=== PATIENT | female | born 1940 | race Caucasian/White ===

== ENCOUNTER 2016-09-22 09:27 | Outpatient (CLI) | payer MEDICARE ==
[2016-09-22 10:33] LABS: eGFR (African) > 60; eGFR (Non-African) > 60
== END 2016-09-22 09:30 ==
LOC: LAB 09:27
PROVIDERS: ATTEND Family Medicine
DX: E78.2 Mixed hyperlipidemia (principal); E03.9 Hypothyroidism, unspecified
CPT/HCPCS: 36415; 80053; 80061; 84443

== ENCOUNTER 2016-09-23 10:19 | Outpatient (CLI) | payer MEDICARE | END 2016-09-23 10:20 | LOC: RAD 10:19 | PROVIDERS: ATTEND Family Medicine | DX: Z78.0 Asymptomatic menopausal state (principal) | CPT/HCPCS: 77080 ==

== ENCOUNTER 2016-11-21 10:57 | Day surgery (SDC) | payer MEDICARE, OTHER ==
--- NOTE | 2016-11-23 14:05 | GI Report ---
REFERRING PHYSICIAN: Dr. Ainsley Gilbert HUMAN RESOURCES PSYCHOLOGIST: Benny Campbell MD PROCEDURE MEDICATION: Propofol as per anesthesia. INDICATIONS: This 75-year-old woman had a colonoscopy in [address] Arcos. She is referred for a follow up evaluation. She denies change in her stools or blood in her stools. She denies a family history of colorectal cancer. PROCEDURE PERFORMED: Colonoscopy. PROCEDURE: An Olympus video colonoscope was advanced into the rectum and slowly advanced to the cecum. A very atonic redundant colon. It took rotating to the supine position and nurse compression to finally reach the base of the cecum. The appendiceal orifice and ileocecal valve were normal. On slow withdrawal, the cecum, ascending colon, and transverse colon with no obvious intraluminal lesions noted. The descending colon and sigmoid colon with redundancy but no obvious intraluminal lesions were noted. Retroflexion of the rectum was normal. Patient tolerated the procedure well. FINDINGS: A very atonic redundant colon but no obvious intraluminal lesions noted. RECOMMENDATIONS: 1. A high-fiber diet. 2. Consider re-looking at her colon in 10 years, sooner if clinically indicated. cc: Dr. Ainsley ANGLIN
== END 2016-11-21 11:00 ==
LOC: OPSURG 10:57
PROVIDERS: ATTEND Internal Medicine Gastroenterology
DX: Z12.11 Encounter for screening for malignant neoplasm of colon (principal)
CPT/HCPCS: J2001; J2704; J7120; G0121; S1016

== ENCOUNTER 2017-09-17 20:15 | Observation (INO) | payer MEDICARE, OTHER ==
[2017-09-17] MEDS ORDERED: ASPIRIN 81 MG CHEW TAB PO ONE (20:24)
[2017-09-17] MEDS ORDERED: NITROGLYCERIN 0.4 MG TAB.SUBL SL ONE (20:25)
--- NOTE | 2017-09-17 20:30 | ED Physician Documentation ---
General Adult - HISTORIAN Historian: patient, other (neighbor) - HPI Stated Complaint: chest pain, high bp Chief Complaint: General Adult Onset: hours Timing: still present Severity: moderate Further Comments: yes (Pt is a 76 yo female with chest pain and elevated bp at home 220/110. Pt has had cold sx x 2 weeks and then developed a cough in the past 3 days. Pt then developed chest pain, that she initially attributed to the cough. The chest pain then began to radiate to the L side of her chest. Pt then discovered her bp was markedly elevated. Pt has not had n/v, diaphoresis. Pt took a nitro sl tablet with relief of cp. Pt had a cardiac stent placed 6 yrs ago, though pt did not have an DC. Pt has hx htn and takes metoprolol. Pt reports here systolic bp this am was 120. She presents with bp= 226/119, though cp is resolved.) - ROS CONST: no problems EYES/ENT: none CVS/RESP: chest pain, cough GI/: denies: vomiting, nausea MS/SKIN/LYMPH: none NEURO/PSYCH: headache (mild) - PAST HX Past History: other (cardiac stent without DC, HTN, hypothyroidism, HLD) Surgeries/Procedures: cardiac stent Allergies/Adverse Reactions: Allergies Allergy/AdvReac Type Severity Reaction Status Date / Time No Known Drug Allergies Allergy Verified 09/17/17 20:48 Home Medications: Ambulatory Orders Medication Instructions Recorded Aspirin [Aspir 81] 81 mg PO DAILY u2 08/29/14 Metoprolol Succinate [Toprol XL] 25 mg PO DAILY 09/17/17 - SOCIAL HX Smoking History: non-smoker - FAMILY HX Family History: No - REVIEWED ASSESSMENTS Nursing Assessment Reviewed: Yes Vitals Reviewed: Yes Progress - Progress Progress: ASA 325 mg po nitro 0.4 mg SL bp 220/113 --> 165/89 one inch nitro paste bp 165/85 Metoprolol 25 mg po admit to Dr. Quinn, chest pain, HTN - EKG/XRAY/CT EKG: NSR (HR=87; normal axis; normal DE interval; 0.05 mm depression V4-5.) XRAY: chest (No focal consolidation or pleural effusion. Pulmonary vascular congestion.) ED Results Lab/Radiology - Orders Orders: ED Orders Category Date Time Status Continuous EKG monitoring Q30M Care 09/17/17 20:24 Ordered Continuous Pulse Oximetry Q30M Care 09/17/17 20:[address] IV Lock 1T Care 09/17/17 20:24 Ordered CHEST 1VIEW [RAD] Stat Exams 09/17/17 Ordered CBC/PLATELET/DIFF Routine Lab 09/17/17 20:24 Ordered CKMB Stat Lab 09/17/17 Ordered CMP Routine Lab 09/17/17 20:24 Ordered CREATINE KINASE Routine Lab 09/17/17 20:24 Ordered D DIMER Stat Lab 09/17/17 Ordered NT-proBNP Stat Lab 09/17/17 Ordered TROPONIN I (cTnI) Stat Lab 09/17/17 20:24 Ordered Aspirin Med 09/17/17 20:24 Once 324 mg PO NOW ONE Nitroglycerin [Nitroquick] Med 09/17/17 20:25 Once 0.4 mg SL NOW ONE Oxygen Daily Oxygen 09/17/17 20:30 Ordered EKG WITH COMPARISON Stat Ther 09/17/17 20:24 Ordered General Adult Physical Exam - PHYSICAL EXAM GENERAL APPEARANCE: mild distress EENT: pharynx normal NECK: normal inspection, supple RESPIRATORY: no resp distress, chest non-tender, breath sounds normal CVS: reg rate & rhythm, heart sounds normal ABDOMEN: soft, no organomegaly, normal bowel sounds BACK: normal inspection, no CVA tenderness SKIN: warm/dry, normal color EXTREMITIES: non-tender, normal range of motion, no evidence of injury, no edema NEURO: oriented X3, motor nml, sensation nml Discharge Clincal Impression: Chest pain Qualifiers: Chest pain type: unspecified Qualified Code(s): R07.9 - Chest pain, unspecified Hypertension Qualifiers: Hypertension type: unspecified Qualified Code(s): I10 - Essential (primary) hypertension Referrals: Ainsley Gilbert MD [Primary Care Provider] - Condition: Stable Disposition: ADMITTED INPATIENT Decision to Admit: [id number] Decision Time: 22:28
[2017-09-17] MEDS ORDERED: NITROGLYCERIN 2% 1GM OINT PACKET...G. TD ONE (20:46)
[2017-09-17 20:54] LABS: BASOPHILS % 0.7 (0.0-1.5); EOSINOPHILS % 3.6 % (0.0-6.8); MEAN CORPUSCULAR HEMOGLOBIN 31.1 pg (28.0-34.0); MEAN CORPUSCULAR VOLUME 93.3 fl (80.0-100.0); MONOCYTES % 4.5 % (0.0-11.0); NEUTROPHILS # 5.5 # k/uL (1.4-7.7)
[2017-09-17 21:10] LABS: eGFR (African) > 60; eGFR (Non-African) > 60
[2017-09-17] MEDS ORDERED: METOPROLOL TARTRATE 25 MG TABLET PO ONE (21:32)
[2017-09-17] MEDS ORDERED: METOPROLOL TARTRATE 50 MG TABLET ONE (21:35)
[2017-09-17] MEDS ORDERED: METOPROLOL SUCCINATE 50 MG TAB.ER.24H PO ONE (22:25)
--- NOTE | 2017-09-17 22:31 | Diagnostic Imaging Report ---
MADDIE FELIX [facility] [id number] [facility] [address] [id number] Report Submission Date: Sep 17, 2017 9:38:00 PM CDT Patient Study Name: MYNOR DIANA Date: Sep 17, 2017 8:57:03 PM CDT Modality Type: DX Gender: F Description: CHEST : 40 Institution: [facility] Physician: MADDIE FELIX A single frontal view of the chest History: The chest pain No comparison studies Cardiac size is upper limits of normal. There is no focal consolidation, pleural effusion or pneumothorax. Mild central pulmonary vascular congestion is present No acute osseous pathology. Impression: No focal consolidation or pleural effusion. Pulmonary vascular congestion. Electronically signed on Sep 17, 2017 9:38:00 PM CDT by: Judy ANGLIN
[2017-09-17 23:37] VITALS: BMI 23.0
[2017-09-17] MEDS ORDERED: ACETAMINOPHEN 325 MG TABLET ONE (23:47)
[2017-09-17] MEDS: ACETAMINOPHEN 325 MG TABLET PO PRN (23:48)
[2017-09-17] MEDS: METOPROLOL TARTRATE 25 MG TABLET PO SCH (23:52)
[2017-09-18] MEDS ORDERED: ASPIRIN EC 81 MG TABLET.DR ONE (01:38)
[2017-09-18] MEDS ORDERED: ACETAMINOPHEN 325 MG TABLET ONE (05:41)
[2017-09-18] MEDS: ACETAMINOPHEN 325 MG TABLET PO PRN (05:43)
[2017-09-18] MEDS ORDERED: SALINE FLUSH 10 ML DISP.SYRIN IV SCH (09:00)
[2017-09-18] MEDS ORDERED: ASPIRIN EC 81 MG TABLET.DR PO SCH (09:00)
[2017-09-18] MEDS ORDERED: LEVOTHYROXINE SODIUM 75 MCG TABLET PO SCH (09:00)
[2017-09-18 09:28] VITALS: BP 185/83
[2017-09-18] MEDS ORDERED: METOPROLOL SUCCINATE 50 MG TAB.ER.24H PO ONE (10:31)
[2017-09-18] MEDS: METOPROLOL TARTRATE 25 MG TABLET PO SCH (10:37)
[2017-09-18] MEDS ORDERED: METOPROLOL SUCCINATE 50 MG TAB.ER.24H PO SCH (11:00)
[2017-09-18] MEDS ORDERED: ATORVASTATIN CALCIUM 80 MG TABLET PO SCH (21:00)
--- NOTE | 2017-09-19 14:48 | Discharge Summary ---
DATE OF ADMISSION: September 17, 2017 DATE OF DISCHARGE: September 18, 2017 DIAGNOSES ON THIS HOSPITALIZATION: 1. Hypertensive urgency. 2. Chest pain. SUMMARIZATION OF ADMISSION HISTORY AND PHYSICAL: This is a 76-year-old female patient of Dr. Gilbert's who presented with an onset of some chest pain and a markedly elevated blood pressure. She was initially admitted with a blood pressure of 220/119. HOSPITAL COURSE: EKG did not show any evidence of ischemia and her troponin's were negative x3. I reviewed another EKG just this morning and it continued to be within normal limits and she has not had any chest pain since prior to her arrival at the hospital. She will be discharged to home with continuation of all of her home medications in markedly improved condition. DISCHARGE INSTRUCTIONS: 1. Follow up with Dr. Gilbert in 1 week. 2. Call or return for any return of elevated blood pressures or chest pain or any other concerns. LINNETTE
--- NOTE | 2017-09-19 16:05 | History and Physical Report ---
CHIEF COMPLAINT: 1. Hypertensive urgency. 2. Chest pain. HISTORY OF PRESENT ILLNESS: This is a 76-year-old female who has not been feeling well for about the last couple of weeks and she has been coughing quite a bit the last 3 days. This afternoon she began to have some left-sided chest pain which she said she thought was likely due to her cough. This resolved after she took a single nitroglycerin but she took her blood pressure at that time and noted that it was markedly elevated and she presented to the emergency room with a blood pressure of 220/119. She was given another dose of metoprolol and an inch of nitropaste was placed and her blood pressure came down to 170s over 80s. Her chest pain has completely resolved. Her EKG shows no evidence of any ongoing ischemia, although there are some equivocal ST-segment depressions in the extreme lateral leads, troponin is negative and D-dimer is negative. She is resting comfortably. The last blood pressure was 182/103. She has just been given another metoprolol. PAST MEDICAL HISTORY: 1. History of arthrosclerotic coronary vascular disease for which she had a stent placed in 2011. She denies that she had a myocardial infarction before this. 2. History of hypothyroidism. PAST SURGICAL HISTORY: She had the stent placement in 2011. No other surgical procedures. MEDICATIONS: 1. Levothyroxine 75 mcg daily. 2. Baby aspirin 1 p.o. daily. 3. Atorvastatin 20 mg daily. 4. Metoprolol succinate 25 mg daily. ALLERGIES: She is allergic to no known medications. SOCIAL HISTORY: She lives by herself. She is a [place]. She does not smoke. Does not drink. She has been a now for 6 years. Her from lung problems she says. FAMILY HISTORY: A son at age 40 from an RI. Mom at age 80 from breast cancer. Dad at age 66 with hypertension. Brother of coronary disease. REVIEW OF SYSTEMS: Notable for a little bit of a sore throat. She has not noticed any fever, chills, nausea, or vomiting. She has not had any wheezing or cough. She has not had any abdominal pain. She has not had any increasing pedal edema. No new skin rashes have been appreciated. PHYSICAL EXAMINATION: Vital Signs: T: 98.4, P: 71, BP: 182/103, R: 16, pulse oximetry is 96% on room air. General: This is a 76-year-old female who looks significantly younger than her stated age. Head: Normocephalic and atraumatic. She has a significant amount of dental work. Her pharynx is clear. Neck: No carotid bruits. No thyroid masses. Lungs: Clear. Heart: Regular. No auscultated murmurs are noted. Abdomen: Soft. No surgical incisions. No guarding. No rebound. Very minimal tenderness with deep palpation but I cannot palpate any abdominal pulsatile masses, nor do I auscultate a bruit. Pelvic Examination: Deferred. Extremities: Warm and well perfused. She does have some dystrophic nails, mostly her great toenails. Easily palpable dorsalis pedis and posterior tibial pulses are noted. Intact sensation is noted. No edema. DIAGNOSTIC STUDIES: Laboratory shows a white count of 10,100, hemoglobin 13.2, hematocrit 39.7, platelets 333,000 with an unremarkable differential. Her D-dimer is 296, well within the normal range. She has a sodium of 140, potassium 3.9, chloride 99, BUN 14, creatinine 0.70, glucose 124, calcium 9.4. LFTs and bilirubin are within normal limits. Troponin is less than 0.03. CK-MB is within normal limits. BNP is 228. Total protein is 7.1. Albumin 4.2. EKG shows a questionable, about 0.5 mm, depression in leads V5 and V6, otherwise , normal sinus rhythm is noted. No evidence of any left ventricular hypertrophy is appreciated. Chest x-ray is read as some pulmonary vascular congestion. ASSESSMENT: A 76-year-old female with a known history of coronary disease who presented with chest pain and a concomitant finding of a markedly elevated blood pressure. PLAN: 1. She is admitted. 2. We have given her an extra metoprolol just now. 3. We will continue serial EKGs and troponin's. 4. Hopefully, we will be able to discharge her in the morning. 5. We will have her follow up with Dr. Vernon, her rubber curer, after discharge. LINNETTE
== END 2017-09-18 13:12 | disposition home or self-care (01) ==
LOC: ED 20:15 → SOUTH 22:31
PROVIDERS: ADMIT Family Medicine; ATTEND Family Medicine
DX: R07.9 Chest pain, unspecified (principal); I10 Essential (primary) hypertension; E78.5 Hyperlipidemia, unspecified; E03.9 Hypothyroidism, unspecified
CPT/HCPCS: 71045; 80053; 82550; 82553; 83880; 84484; 85025; 85379; 93005; G0378; 99217; 99219; 99284; S1016

== ENCOUNTER 2017-10-09 08:10 | Outpatient (CLI) | payer MEDICARE ==
[2017-10-09 09:27] LABS: eGFR (African) > 60; eGFR (Non-African) > 60
== END 2017-10-09 08:12 ==
LOC: LAB 08:10
PROVIDERS: ATTEND Family Medicine
DX: E03.9 Hypothyroidism, unspecified (principal); I25.10 Atherosclerotic heart disease of native coronary artery without angina pectoris
CPT/HCPCS: 36415; 80053; 80061; 84443

== ENCOUNTER 2018-10-23 08:11 | Outpatient (CLI) | payer MEDICARE, OTHER | END 2018-10-23 08:13 | LOC: LAB 08:11 | PROVIDERS: ATTEND Internal Medicine Cardiovascular Disease | DX: I10 Essential (primary) hypertension (principal); E78.5 Hyperlipidemia, unspecified | CPT/HCPCS: 36415; 80048; 80061 ==